=== PATIENT | female | born 1975 | race Caucasian/White ===

== ENCOUNTER 2016-11-11 07:42 | Emergency (ER) | payer MEDICAID ==
[~2016-11-11] VITALS: Ht 162.6 cm; Wt 70.8 kg
[~2016-11-11 07:42] MED LIST: GLYB1TAB13 PO
[2016-11-11 07:51] VITALS: BP 146/85
--- NOTE | 2016-11-11 07:59 | NUR ---
PATIENT PRESENTS TO ED WITH C/O PAIN TO LEFT HEEL SCABBED WOUND X 4 DAYS---DENIES DRAINAGE, SLIGHT REDNESS NOTED PT STATES HAD AN OPEN SORE X 2 MONTHS HX--DM, HYPERLIPIDEMIA RX--METFORMIN 850MG BID; DENIES N/V/D; SKIN IS PINK/WARM/DRY; AAOX4 WITH EVEN AND STEADY GAIT; LUNGS CLEAR BL; HR EVEN AND REGULAR; PT DENIES ANY FEVER, CP, SOB, OR COUGH AT THIS TIME; PATIENT STATES PAIN OF 8/10 AT THIS TIME; VSS; PATIENT POSITIONED FOR COMFORT; HOB ELEVATED; BEDRAILS UP X2; BED DOWN. ER MD MADE AWARE OF PT STATUS.
--- NOTE | 2016-11-11 08:07 | NUR ---
DR MADRIGAL EVALUATING AAO PT AT BEDSIDE
[2016-11-11 08:22] VITALS: BP 138/86
== END 2016-11-11 08:22 | disposition home or self-care (01) ==
LOC: MED 07:42
DX: E11.621 Type 2 diabetes mellitus with foot ulcer (principal); L97.529 Non-pressure chronic ulcer of other part of left foot with unspecified severity
CPT/HCPCS: 82948; 99283

== ENCOUNTER 2020-12-14 01:50 | Emergency (ER) | payer SELFPAY ==
[~2020-12-14] VITALS: Ht 160 cm; Wt 72.6 kg
[~2020-12-14 01:50] MED LIST changes: -GLYB1TAB13 PO; +[UNRECOGNIZED DRUG - CODE] PO
[2020-12-14 01:54] VITALS: BP 148/65
--- NOTE | 2020-12-14 02:02 | NUR ---
PATIENT TO BED 4
--- NOTE | 2020-12-14 02:08 | NUR ---
Dr. Driscoll examining patient.
[2020-12-14] MEDS ORDERED: SULF-59 PO (03:01)
[2020-12-14] MEDS ORDERED: IBUP-2218 PO (03:01)
[2020-12-14] MEDS ORDERED: CEPH-588 PO (03:01)
[2020-12-14] MEDS: SULFAMETH/TRIMETH DS 800/160MG 1 TAB PO ONE (03:06)
[2020-12-14] MEDS: LIDOCAINE MPF 1% 10 MG/ML VIAL INJ ONE (03:22)
== END 2020-12-14 03:45 | disposition home or self-care (01) ==
LOC: MED 01:50
DX: L03.312 Cellulitis of back [any part except buttock and flank] (principal); E11.65 Type 2 diabetes mellitus with hyperglycemia
CPT/HCPCS: 10060; 90471; 90715; 99284; J2001

== ENCOUNTER 2020-12-16 16:24 | Emergency (ER) | payer MEDICAID ==
[~2020-12-16] VITALS: Ht 160 cm; Wt 73.5 kg
[~2020-12-16 16:24] MED LIST changes: +CEPH-588 PO; +IBUP-2218 PO; +SULF-59 PO
[2020-12-16 16:35] VITALS: BP 171/75
--- NOTE | 2020-12-16 16:57 | NUR ---
MARQUITA WALKER BEDSIDE EVALUATING PT
--- NOTE | 2020-12-16 17:00 | NUR ---
NO NURSING INTERVENTIONS GIVEN/REQURIED. NO NEED FOR COMPLETE ASSESSMENT
[2020-12-16 17:05] VITALS: BP 171/75
--- NOTE | 2020-12-16 17:06 | NUR ---
Patient discharged with v/s stable. Written and verbal after care instructions given and explained. Patient verbalized understanding. Ambulatory with steady gait. All questions addressed prior to discharge. Advised to follow up with PMD.
== END 2020-12-16 17:05 | disposition home or self-care (01) ==
LOC: MED 16:24
DX: L02.212 Cutaneous abscess of back [any part, except buttock and flank] (principal); E11.9 Type 2 diabetes mellitus without complications; I10 Essential (primary) hypertension; Z79.899 Other long term (current) drug therapy; Z79.84 Long term (current) use of oral hypoglycemic drugs
CPT/HCPCS: 99281

== ENCOUNTER 2020-12-18 18:35 | Emergency (ER) | payer MEDICAID ==
[~2020-12-18] VITALS: Ht 160 cm; Wt 74.4 kg
[2020-12-18 18:48] VITALS: BP 146/70
--- NOTE | 2020-12-18 19:41 | NUR ---
PT AMBULATED TO BED 12
--- NOTE | 2020-12-18 19:59 | NUR ---
45 YO/F BIB SELF FOR RE-CHECK OF PREVIOUS I&D DONE THIS PAST MONDAY FOR AN ABSCESS TO HER BACK. PT HAD A RE-CHECK MONDAY AND WAS TOLD TO RETURN TODAY FOR ANOTHER RECHECK. PT HAS PACKED INCISION TO HER BACK AT PREVIOUS SITE OF ABSCESS, REDNESS AND WARMTH NOTED AROUND INCISION, NO DRAINAGE NOTED. PT DENIES ANY PAIN, FEVER OR CHILLS. PT REPORTS SHE FEELS LIKE IT IS IMPROVING. PT LAYING IN R LATERAL POSITION W X1 SIDERAIL UP. BREATHING EVEN AND UNLABORED. NAD NOTED, WILL CONTINUE TO MONITOR. VSS. ERMD AT BEDSIDE. PMH: DIABETES, HTN NKA
--- NOTE | 2020-12-18 20:57 | NUR ---
Dr. Moreno examining patient.
[2020-12-18 21:15] VITALS: BP 146/70
== END 2020-12-18 21:15 | disposition home or self-care (01) ==
LOC: MED 18:35
DX: L02.212 Cutaneous abscess of back [any part, except buttock and flank] (principal); E11.9 Type 2 diabetes mellitus without complications; I10 Essential (primary) hypertension; Z79.899 Other long term (current) drug therapy; Z79.84 Long term (current) use of oral hypoglycemic drugs
CPT/HCPCS: 99281

== ENCOUNTER 2020-12-21 18:54 | Emergency (ER) | payer MEDICAID ==
[~2020-12-21] VITALS: Ht 160 cm; Wt 73.5 kg
[2020-12-21 19:10] VITALS: BP 152/72
--- NOTE | 2020-12-21 19:46 | NUR ---
PATIENT CAME FOR WOUND CHECK OUT WE CHANGED THE DRESSING //Annel ARMSTRONG
[2020-12-21 20:00] VITALS: BP 132/72
--- NOTE | 2020-12-21 20:04 | NUR ---
PATIENT DC HOME STABLE FEELING WELL VITALS SIGNS IN NORMAL LIMITS ALL DC INSTRUCTION GAVE AND EXPLAINED ALONG WITH WOUND CARE TEACHING //Annel RN
== END 2020-12-21 19:59 | disposition home or self-care (01) ==
LOC: MED 18:54
DX: Z48.01 Encounter for change or removal of surgical wound dressing (principal); I10 Essential (primary) hypertension; E11.9 Type 2 diabetes mellitus without complications; Z79.2 Long term (current) use of antibiotics; Z79.1 Long term (current) use of non-steroidal anti-inflammatories (NSAID); Z79.899 Other long term (current) drug therapy
CPT/HCPCS: 99281

== ENCOUNTER 2020-12-28 10:18 | Emergency (ER) | payer MEDICAID ==
[~2020-12-28] VITALS: Ht 160 cm; Wt 74.4 kg
[2020-12-28 10:25] VITALS: BP 133/59
--- NOTE | 2020-12-28 10:30 | NUR ---
Pt ambulated to bed 10 with steady/even gait.
--- NOTE | 2020-12-28 10:35 | NUR ---
45 y/o F BIB self frmo home c/o abscess recheck. Patient A&Ox4, ambulatory, seen here for recheck 3 days ago and advised for further follow up. Patient denies pain. No swelling, redness, warmth noted to abscess of R mid back. Denies fever, chills, nausea, vomiting. Denies meds prior to arrival. Bed locked in lowest position, side rails x1, call light in reach. PMH: HTN, DM2 MED: GLIPIZIDE, METFORMIN NKA
--- NOTE | 2020-12-28 10:48 | NUR ---
Dr. Doherty is evaluating patient at bedside
== END 2020-12-28 11:02 | disposition home or self-care (01) ==
LOC: MED 10:18
DX: L02.212 Cutaneous abscess of back [any part, except buttock and flank] (principal); E11.9 Type 2 diabetes mellitus without complications; I10 Essential (primary) hypertension; Z79.899 Other long term (current) drug therapy; Z79.84 Long term (current) use of oral hypoglycemic drugs
CPT/HCPCS: 99281